=== PATIENT | female | born 1985 | race Caucasian/White ===

== ENCOUNTER → 2022-06-08 | Outpatient (CLI) | payer BC ==
[~2022-06-08] MED LIST: LEXISCAN IV ONE
--- NOTE | 2022-06-08 23:27 | STRESS ---
DATE OF SERVICE: 06/08/2022 DICTATOR NAME: DICK ELIZABETH CARDIAC STRESS TEST INDICATION: Chest pain. FINDINGS: Baseline EKG shows normal sinus rhythm with poor R-wave progression, likely normal variant. Stress EKG shows sinus tachycardia, unchanged from baseline. At the end of recovery, EKG shows normal sinus rhythm, unchanged from baseline. Baseline heart rate is 86 beats per minute and jose to 111 beats per minute during stress. At the end of recovery, the heart rate was 94 beats per minute. Baseline blood pressure is 141/102 and remained the same during stress. At the end of recovery, the blood pressure is 139/82. Blood pressure and heart rate were appropriate for stress. There were no significant symptoms noted during stress. There were no arrhythmias noted during stress. EKG portion of stress test is negative for myocardial ischemia. Nuclear images were obtained with a rest dose of 11.4 mCi technetium-99 sestamibi, and a stress dose of 33 mCi of technetium 99 sestamibi. Nuclear images reveal a moderate-sized area of reversible perfusion defect involving the anterior wall, suggestive of myocardial ischemia. There is also a mild area of reversible perfusion defect involving the apical wall, also suggestive of myocardial ischemia. There is no evidence of myocardial infarction. Left ventricular ejection fraction is 72%. EDV is 64 mL, ESV is 18 mL. The left ventricle is normal in size. Gated motion images shows normal wall motion across all segments of the left ventricle. TID is 1.09. There is no evidence of diaphragmatic attenuation artifact. IMPRESSION: 1. There is a moderate-sized area of reversible perfusion defect involving the anterior wall, suggestive of myocardial ischemia. 2. There is a mild area of reversible perfusion defect involving the apical wall, suggestive of myocardial ischemia. 3. There is no evidence of myocardial infarction. 4. This is an abnormal study. Recommend left heart catheterization. Jaron JORDAN D.O. DR: SANAZ TID: [id number] RECEIPT: [id number]
--- NOTE | 2022-06-09 00:49 | PCM.ECHO ---
APPROVED REPORT EXAM: Comprehensive 2D, Doppler, and color-flow Echocardiogram. Patient Location: OUT-PATIENT Indications Dyspnea Hypertension/HDD Chest Pain 2D Dimensions LVOT Diameter 2.12 (1.8-2.4cm) LVEF(%) 63.26 (>50%) M-Mode Dimensions RVDd 1.10 (2.1-3.2cm) Left Atrium(MM) 3.30 (2.5-4.0cm) IVSd 0.90 (0.7-1.1cm) Aortic Root 2.55 (2.2-3.7cm) LVDd 5.50 (4.0-5.6cm) Aortic Cusp Exc 2.10 (1.5-2.0cm) PWd 0.65 (0.7-1.1cm) MV EPSS 0.51 (<0.5cm) IVSs 1.35 cm FS (%) 39.70 % LVDs 3.30 (2.0-3.8cm) ESV(Teich) 45.17 ml PWs 1.25 cm LVEF(%) 69.72 (>50%) Volumes Biplane 2D LV Volumes Biplane 2D LA Volumes LVEDv A4C 101.88 mL LA ESV Index LVESv A4C 37.43 mL Aortic Valve AoV Peak Raf. 1.25 m/s AoV VTI 27.00 cm AO Peak GR. 6.35 mmHg AO Mean GR. 3.45 mmHg LVOT VTI 25.74 cm LVOT Peak Raf. 0.99 m/s GUS(VTI)/BSA 3.35 cm2/m2 GUS (VTI) 3.35 cm2 Mitral Valve MV E Velocity 1.10m/s MR Peak Gr. 7.90mmHg MV A Velocity 0.90m/s TDI Lateral E' P. V 0.15m/s Medial E' P. V 0.12m/s Pulmonary Valve PV Peak Velocity 0.70m/s PV Peak Grad. 2.20mmHg RVOT VTI 19.95cm Tricuspid Valve TR P. Velocity 1.10m/s RAP ESTIMATE 10.00mmHg TR Peak Gr. 4.90mmHg RVSP 14.90mmHg LEFT VENTRICLE The left ventricle is normal size. The left ventricular systolic function is normal. The left ventricular ejection fraction is within the normal range. There is normal left ventricular wall thickness. There is normal LV segmental wall motion. The left ventricular diastolic function is normal. There is no ventricular septal defect visualized. No left ventricle thrombus noted on this study. LVEF is 60-65%. RIGHT VENTRICLE The right ventricle is normal size. The right ventricular systolic function is normal. There is normal right ventricular wall thickness. ATRIA The left atrium size is normal. The right atrium size is normal. The interatrial septum is intact with no evidence for an atrial septal defect. AORTIC VALVE The aortic valve is normal in structure. There is no aortic valvular stenosis. No aortic regurgitation is present. There is no aortic valvular vegetation. MITRAL VALVE The mitral valve is normal in structure. There is no mitral valve stenosis. Mild mitral regurgitation. There is no evidence of mitral valve vegetations. TRICUSPID VALVE The tricuspid valve is normal in structure. There is no tricuspid valve stenosis. Mild tricuspid regurgitation. There is no tricuspid valve vegetations. PULMONIC VALVE Pulmonic valve is not well visualized. There is no pulmonic valvular stenosis. There is no pulmonic valvular regurgitation. GREAT VESSELS The aortic root is normal in size. Pulmonary artery is not well visualized. Aortic arch is not well visualized. The IVC is normal in size and collapses >50% with inspiration. PERICARDIUM There is no pericardial effusion. There is no pleural effusion. Other Information Study Quality: Fair <Conclusion> The left ventricular systolic function is normal. LVEF is 60-65%. Mild mitral regurgitation. Mild tricuspid regurgitation. Electronically signed by : DICK ELIZABETH. 06/09/2022 00:48:11
== END | disposition home or self-care (01) ==
LOC: RAD 08:44
PROVIDERS: ATTEND Internal Medicine Interventional Cardiology
DX: I08.1 Rheumatic disorders of both mitral and tricuspid valves (principal); R94.31 Abnormal electrocardiogram [ECG] [EKG]; I10 Essential (primary) hypertension; R06.02 Shortness of breath; R07.9 Chest pain, unspecified
CPT/HCPCS: 78452; 93306; 93017; J2785; A9500

== ENCOUNTER 2022-06-26 14:42 | Emergency (ER) | payer BC ==
[~2022-06-26] VITALS: Ht 160 cm; Wt 95.7 kg
[2022-06-26 14:42] VITALS: BP 144/88
[~2022-06-26 14:42] MED LIST changes: -NS 1000ML 1,000 ML IV SCH; -SUBLIMAZE ONE; -VERSED ONE; -XYLOCAINE ONE
--- NOTE | 2022-06-26 14:42 | NUR ---
ARRIVAL PT PRESENTS TO THE ED VIA EMS WITH C/O DIZZINESS, N/V AND SOB. PT STATES SHE WAS DISCHARGED AT 1350 FROM THE HOSPITAL FROM HER HEART CATH PROCEDURE THIS MORNING, PT STATES SHE WAS FINE BEFORE SHE WAS DISCHARGED HOME, WENT TO GO GRAB LUNCH AND BECAME DIZZY, PT STATES SHE WENT TO THE BATHROOM AND VOMITIED, STARTED SWEATING, BECAME SOB AND STARTED TO DEVELOP ABD PAIN. NO BLEEDING NOTED AT CATH SITE, SOFT TO TOUCH, PT VITALS OBTAINED, PT STABLE, NOTIFIED OF PT ARRIVAL.
[2022-06-26] MEDS ORDERED: NS 1000ML 1,000 ML STA (14:53)
[2022-06-26 15:09] LABS: BASOPHIL # 0.1 10^3/uL (0.0-0.1); BASOPHIL % 0.6 % (0.0-0.2); EOSINOPHIL # 0.3 10^3/uL (0.0-0.2); EOSINOPHIL % 3.1 % (0.0-5.0); LYMPHOCYTES # 1.99 10^3/uL1 (1.0-4.8); LYMPHOCYTES % 18.8 % (24.0-44.0); MONOCYTES # 0.8 10^3/uL (0.3-0.8); NEUTROPHIL # 7.3 10^3/uL (1.8-7.7); NEUTROPHILS % 69.3 % (41.0-85.0); PLATELET COUNT 286 10^3/uL (150-400); RED CELL DISTRIBUTION WIDTH 14.1 % (11.5-14.5)
[2022-06-26] MEDS ORDERED: NS 1000ML 1,000 ML ONE (15:11)
--- NOTE | 2022-06-26 15:22 | PCM.EKG ---
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
[2022-06-26 15:30] LABS: CARBON DIOXIDE 21.5 mmol/L (20.0-32)
--- NOTE | 2022-06-26 15:34 | DIREP ---
PROCEDURE:CHEST 1 VIEW COMPARISON:None. INDICATIONS:sob FINDINGS: LUNGS/PLEURA:No significant pulmonary parenchymal abnormalities. No effusions. VASCULATURE:Normal. Unremarkable pulmonary vasculature. CARDIAC:Normal. No cardiac silhouette abnormality or cardiomegaly. MEDIASTINUM:Normal. No visible mass or adenopathy. BONES:Normal. No fracture or visible bony lesion. OTHER:Negative. CONCLUSION:Normal examination. Dictated by: Yoan Munoz DO on 06/26/2022 at 03:24 PM
--- NOTE | 2022-06-26 16:11 | ER.PDOC ---
General Chief Complaint: Requesting Medical Care Stated Complaint: DIZZINESS, SOB, N/V Time seen by MD: 14:45 Source: patient, EMS Exam Limitations: no limitations History of Present Illness Initial Comments Patient is a 36-year-old female with a past medical history of episodic chest pain who comes in after having a cardiac catheter visitation today that found nothing for a multitude of symptoms that started about 30 minutes prior to arrival. Patient comes in via EMS for nausea feeling diaphoretic and having some weird chest pain she had a heart cath earlier today with Dr. Mandujano And states that shortly after she got home she began experiencing all of the symptoms. Patient states that she had nausea without vomiting and associated symptoms of diaphoresis with chest pain that was more of an odd sensation throughout her whole body just localized in her chest. Patient has a past medical history of anxiety as well and states that this could possibly be what it is as well. Patient has no fevers and denies any other complaints at this time. Allergies: Coded Allergies: latex (Verified Allergy, Unknown, Rash, 06/21/22) SWELLING tramadol (Verified Allergy, Unknown, Anaphylaxis Shock, 06/21/22) Home Meds Reported Medications Minocycline Hcl (MINOCYCLINE HCL) 50 Mg Tablet, 1 TAB PO DAILY24 for 30 Days, #60 TAB 0 Refills 06/21/22 Buspirone Hcl (BUSPIRONE HCL) 10 Mg Tablet, 1 TAB PO DAILY24, #60 TAB 1 Refill 06/21/22 Omeprazole (OMEPRAZOLE) 20 Mg Capsule.dr, 1 CAP PO DAILY, #30 CAP 5 Refills 06/21/22 Amlodipine Besylate (AMLODIPINE BESYLATE) 5 Mg Tablet, 1 TAB PO DAILY, #30 TAB 5 Refills 06/21/22 Losartan Potassium (LOSARTAN POTASSIUM) 50 Mg Tablet, 1 TAB PO DAILY, #30 TAB 5 Refills 06/21/22 Past Medical History Medical History: hypertension Surgical History: cardiac cath, cholecystectomy, knee Family History Significant Family History: no pertinent family hx Social History Smoking: non-smoker Alcohol Use: none Drug Use: none Reviewed Nursing Reviewed: Vital Signs, Abn. Noted, Nursing Assessment Constitutional: diaphoresis, malaise EENTM: denies no symptoms reported, denies see HPI, denies eye pain, denies blurred vision, denies tearing, denies double vision, denies ear pain, denies ear discharge, denies nose pain, denies nose congestion, denies throat pain, denies throat swelling, denies mouth pain, denies mouth swelling, denies other Respiratory: denies no symptoms reported, denies see HPI, denies cough, denies orthopnea, denies shortness of breath, denies SOB with exertion, denies SOB at rest, denies stridor, denies wheezing, denies other Cardiovascular: chest pain, lightheadedness Gastrointestinal: nausea Genitourinary: denies no symptoms reported, denies see HPI, denies burning, denies dysuria, denies discharge, denies frequency, denies flank pain, denies hematuria, denies incontinence, denies pain, denies urgency, denies other Musculoskeletal: denies no symptoms reported, denies see HPI, denies back pain, denies gout, denies joint pain, denies joint swelling, denies muscle pain, denies muscle stiffness, denies neck pain, denies other Skin: denies no symptoms reported, denies see HPI, denies change in color, de nies change in hair/nails, denies dryness, denies lesions, denies lumps, denies rash, denies other Psychiatric/Neurological: denies no symptoms reported, denies see HPI, denies anxiety, denies depressed, denies emotional problems, denies headache, denies numbness, denies paresthesia, denies pre-existing deficit, denies seizure, denies tingling, denies tremors, denies weakness, denies other Endocrine: denies no symptoms reported, denies see HPI, denies excessive sw eating, denies flushing, denies intolerance to cold, denies intolerance to heat, denies increased hunger, denies increased thrist, denies increased urine, denies unexplained weight gain, denies unexplaned weight loss, denies other Hematologic/Lymphatic: denies no symptoms reported, denies see HPI, denies anemia, denies blood clots, denies easy bleeding, denies easy bruising, denies swollen glands, denies other Physical Exam General Appearance: Anxious HEENT: PERRL/EOMI, Normal ENT Inspection, TMs Normal, Pharynx Normal Neck: Non-Tender, Full Range of Motion, Supple, Normal Inspection Respiratory: chest non-tender, lungs clear, normal breath sounds, no respiratory distress, no accessory muscle use Cardiovascular: Normal Peripheral Pulses, Regular Rate, Rhythm, No Edema, No Gallop, No JVD, No Murmur Gastrointestinal: Normal Bowel Sounds, No Organomegaly, No Pulsatile Mass, Non Tender, Soft Extremities: Normal Range of Motion, Non-Tender, Normal Inspection, No Pedal Edema, No Calf Tenderness, Normal Capillary Refill 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, No Motor/Sensory Deficits, Alert, Normal Mood/Affect, Oriented x 3 Skin: Other (Well-appearing site of heart cath and right groin) Lymphatic: No Adenopathy Results/Orders Results/Orders Orders - ILEANA JIMENEZ MD Cbc With Auto Diff (06/26/22 14:53) Comprehensive Metabolic Panel (06/26/22 14:53) Xr Chest 1v (06/26/22 14:53) Ekg-Routine (06/26/22 14:53) Saline Lock (06/26/22 14:53) Troponin I High Sensitivity (06/26/22 14:53) 0.9 % Sodium Chloride (Ns 1000ml) (06/26/22 14:53) 0.9 % Sodium Chloride (Ns 1000ml) (06/26/22 15:11) Vital Signs Date Time Temp Pulse Resp B/P (MAP) Pulse Ox O2 Delivery O2 Flow Rate FiO2 06/26/22 14:42 98.0 93 18 96 06/26/22 14:42 98.0 93 18 144/88 (106) 96 Room Air* 0 21 06/26/22 14:42 98.0 93 18 Administered Medications Medications (Trade) Dose Ordered Sig/Pina Route PRN Reason Start Time Stop Time Status Last Admin Dose Admin Sodium Chloride 1,000 ml @ 0 mls/hr Q0M STAT IV 06/26/22 14:53 06/26/22 14:55 DC 06/26/22 15:30 1,200 MLS/HR Laboratory Tests Test 06/26/22 15:03 White Blood Count 10.6 10^3/uL (4.5-11.0) Red Blood Count 4.63 10^6/uL (4.00-5.20) Hemoglobin 13.9 g/dL (12.0-15.0) Hematocrit 42.1 % (36.0-46.0) Mean Corpuscular Volume 90.9 fL (78-100) Mean Corpuscular Hemoglobin 30.0 pg (26-34) Mean Corpuscular Hemoglobin Concent 33.0 g/dL (33-36.5) Red Cell Distribution Width 14.1 % (11.5-14.5) Platelet Count 286 10^3/uL (150-400) Mean Platelet Volume 9.6 fL (7.8-11.0) Neutrophils (%) (Auto) 69.3 % (41.0-85.0) Lymphocytes (%) (Auto) 18.8 % (24.0-44.0) L Monocytes (%) (Auto) 8.0 % (5.0-12.0) Neutrophils # (Auto) 7.3 10^3/uL (1.8-7.7) Lymphocytes # (Auto) 1.99 10^3/uL1 (1.0-4.8) Monocytes # (Auto) 0.8 10^3/uL (0.3-0.8) Absolute Immature Granulocyte (auto 0.02 10^3 u/L (0-2) Absolute Eosinophils (auto) 0.3 10^3/uL (0.0-0.2) H Immature Granulocytes % 0.20 % (0.00-0.50) Eosinophils % 3.1 % (0.0-5.0) Basophils % 0.6 % (0.0-0.2) H Basophils # 0.1 10^3/uL (0.0-0.1) Sodium Level 140 mmol/L (132-145) Potassium Level 3.8 mmol/L (3.6-5.2) Chloride Level 104.0 mmol/L (96-109) Carbon Dioxide Level 21.5 mmol/L (20.0-32) Anion Gap 18.3 Blood Urea Nitrogen 12 mg/dL (7-18) Creatinine 0.72 mg/dL (0.59-1.40) Estimated GFR () 110.3 (>/=60) Est GFR (CKD-EPI)(Non-Afr [place]) 91.1 (>/=60) BUN/Creatinine Ratio 16.0 Glucose Level 111 mg/dL (70-110) H Calcium Level 9.5 mg/dL (8.4-10.5) Total Bilirubin 0.7 mg/dL (0.2-1.0) Aspartate Amino Transferase (AST) 33 U/L (0-35) Alanine Aminotransferase (ALT) 55 U/L (12-78) Alkaline Phosphatase 136 U/L (50-136) Troponin I High Sensitivity 5 ng/L (0-50) Total Protein 7.5 g/dL (6.4-8.2) Albumin 4.3 g/dL (3.4-5.0) Globulin 3.2 Albumin/Globulin Ratio 1.343 Progress Progress Patient here after having a contrasted cardiac cath may be having a reaction to this however will work-up with labs chest x-ray EKG we will give her fluids she already got Zofran from EMS we will just continue to monitor At [id number]-up very reassuring. Patient already asymptomatic states that she feels fine. Will discharge with follow-up she voiced understanding when to follow-up and when to return to the ER ER DEPART Departure Time of Disposition: 16:10 Disposition: 01 HOME / SELF CARE / HOMELESS Impression: Primary Impression: Reaction to contrast media Condition: Improved Patient Instructions: Nausea, Adult, [id number] Referrals: [facility] (PCP) PRIMARY CARE PROVIDER Additional Instructions: As we discussed please follow-up with your communication manager and your primary care provider within the next week. If have any new persistent or worsening symptoms or concerns please seek medical Attention. Duration or Time Spent with Pa: 35 Problem Qualifiers Primary Impression: Reaction to contrast media Encounter type: initial encounter Qualified Codes: T50.8X5A - Adverse effect of diagnostic agents, initial encounter ILEANA JIMENEZ MD Jun 26, 2022 16:11
== END 2022-06-26 16:25 | disposition home or self-care (01) ==
LOC: EDBD 14:42 → ER 14:42
DX: R07.9 Chest pain, unspecified (principal); R11.0 Nausea; F41.9 Anxiety disorder, unspecified; I10 Essential (primary) hypertension; R42 Dizziness and giddiness; Z88.5 Allergy status to narcotic agent; Z88.8 Allergy status to other drugs, medicaments and biological substances; Z90.49 Acquired absence of other specified parts of digestive tract
CPT/HCPCS: 99284; 96360; 71045; 80053; 85025; 36415; 84484; 93005; J7030

== ENCOUNTER → 2022-06-26 | Day surgery (SDC) | payer BC ==
[2022-06-21 10:39] VITALS: BP 128/78
[2022-06-26] VITALS (9 sets, daily range): BP systolic 103–125; BP diastolic 55–82
[~2022-06-26] VITALS: Ht 182.9 cm; Wt 95.7 kg
[~2022-06-26] MED LIST changes: +AMLO-169 PO; +BUSP10TA PO; -LEXISCAN IV ONE; +LOSA50TA14 PO; +MINO50TA2 PO; +NS 1000ML 1,000 ML IV SCH; +OMEP20CA19 PO; +SUBLIMAZE ONE; +VERSED ONE; +XYLOCAINE ONE
--- NOTE | 2022-06-26 12:57 | CCRH ---
DATE OF SERVICE: 06/26/2022 DICTATOR NAME: DICK ELIZABETH DO INDICATIONS: Abnormal cardiac stress test. This is a 36-year-old female who was seen in the outpatient setting where she presented with chest pain with radiation to the back and shoulder. Cardiac stress test was noted to be abnormal, so she was set up for left heart catheterization after informed consent were obtained. PROCEDURES PERFORMED: 1. Selective coronary angiography. 2. Left ventriculography. 3. Hemostasis established using a 6-Nigerien Mynx control. PROCEDURAL DETAILS: Access was obtained using a 4-Nigerien micropuncture sheath to cannulate the right common femoral artery. A 4-Nigerien sheath was then upsized to a 6-Nigerien regular short sheath. Diagnostic angiography was then carried out using a Migel left catheter to engage the left main. The left main was noted to be angiographically normal. It trifurcates into left anterior descending artery, a ramus intermedius artery and the left circumflex artery. The left anterior descending artery is noted to have mild luminal irregularities. It runs in the interventricular groove reaching the apex to form a type 2 LAD. It tapers into a small caliber vessel distally. It gives rise to 2 diagonal branches that are noted to have mild luminal irregularities. The ramus intermedius artery is a large caliber vessel with mild luminal irregularities. The left circumflex artery is a small caliber vessel and is nondominant. It has mild luminal irregularities. It gives rise to 2 small obtuse marginal branches that are noted to have mild luminal irregularities. The Migel left catheter was then exchanged for a Migel right catheter, which was used to engage the RCA. RCA angiography revealed a dominant RCA with mild luminal irregularities. The RCA bifurcates distally to a right posterior descending artery and a right posterolateral artery. Both vessels are noted to have mild luminal irregularities. The Migel right catheter was then exchanged for a pigtail catheter, which was used to cross the aortic valve into the left ventricle. Left ventriculography was performed. LVEF was noted to be 60%. LVEDP was noted to be 12. Upon pullback of the pigtail catheter, there was no gradient across the aortic valve. The pigtail catheter was then taken out and hemostasis was established using a 6-Nigerien Mynx control. 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 There were no complications. Again, hemostasis was established using a 6-Nigerien Mynx control. IMPRESSION: 1. Normal coronaries. 2. Selective coronary angiography. 3. Left ventriculography. 4. Left ventricular ejection fraction of 60%. 5. Left ventricular end-diastolic pressure of 12. 6. Hemostasis established using a 6-Nigerien Mynx control. RECOMMENDATIONS: No coronary intervention is necessary at this time. Lifestyle modification factors including diet control, exercise and weight loss have been strongly advised. The patient will be discharged home today to follow up with me in the office in 1-2 weeks. Jaron JORDAN D.O. DR: NATASHA TIElvia: [phone] RECEIPT: [id number]
== END | disposition home or self-care (01) ==
LOC: SDC 08:49
PROVIDERS: ATTEND Internal Medicine Interventional Cardiology
DX: I25.10 Atherosclerotic heart disease of native coronary artery without angina pectoris (principal); I10 Essential (primary) hypertension; I87.2 Venous insufficiency (chronic) (peripheral); E66.9 Obesity, unspecified; R73.03 Prediabetes; F41.9 Anxiety disorder, unspecified; Z90.49 Acquired absence of other specified parts of digestive tract; Z87.891 Personal history of nicotine dependence; Z82.49 Family history of ischemic heart disease and other diseases of the circulatory system; Z91.040 Latex allergy status; Z98.890 Other specified postprocedural states; Z88.8 Allergy status to other drugs, medicaments and biological substances; Z83.3 Family history of diabetes mellitus; Z83.42 Family history of familial hypercholesterolemia; Z72.89 Other problems related to lifestyle; Z86.16 Personal history of COVID-19; Z68.37 Body mass index [BMI] 37.0-37.9, adult
CPT/HCPCS: 93458; 81025; 99152; J1644; C1894 ×2; J2250 ×2; J3010 ×2; C1769; C1760; Q9967